=== PATIENT | male | born 1970 | race Caucasian/White ===

== ENCOUNTER 2018-11-09 06:34 | Emergency (ER) | payer SELFPAY ==
[2018-11-09] MEDS ORDERED: IBUPROFEN 400 MG TAB ONE (07:30)
--- NOTE | 2018-11-09 07:42 | EDPHYS ---
Physician Documentation [facility] Name: Trent Zee Age: 48 yrs Sex: Male : 1970 Arrival Date: 11/09/2018 Time: 06:35 Bed 8 Private MD: Ruben Mehta ED Physician Adolph Razo HPI: 11/09 06:51 This 48 yrs old Male presents to ER via Ambulatory with complaints of Fall cp Injury, Elbow Injury, Knee Injury. 06:51 Details of fall: The patient fell from an upright position, while walking, and struck a cp concrete surface. Onset: The symptoms/episode began/occurred last night. Associated injuries: The patient sustained right elbow, right knee, abrasion. Severity of symptoms: in the emergency department the symptoms pain, decreased ROM of right elbow. Historical: - Allergies: 06:46 Sulfa (Sulfonamide Antibiotics); aa1 - Home Meds: 06:46 glipizide 10 mg Oral tab 1 tab 2 times per day [Active]; lovastatin 40 mg Oral tab 1 aa1 tab once daily [Active]; metformin 1,000 mg Oral tab 1 tab 2 times per day [Active]; - PMHx: 06:46 Diabetes - NIDDM; High Cholesterol; aa1 - PSHx: 06:46 CATARACTS; Pilonidal Cyst Removal; Hernia repair; aa1 - Immunization history:: Flu vaccine is not up to date. - Social history:: Smoking status: Patient/guardian denies using tobacco. - Ebola Screening: : No symptoms or risks identified at this time. ROS: 06:55 Constitutional: Negative for body aches, chills, fever, poor PO intake. cp 06:55 Eyes: Negative for injury, pain, redness, and discharge. cp 06:55 Neck: Negative for pain with movement, pain at rest, stiffness. 06:55 Cardiovascular: Negative for chest pain, edema, palpitations. 06:55 Respiratory: Negative for cough, shortness of breath, wheezing. 06:55 Abdomen/GI: Negative for abdominal pain, nausea, vomiting, and diarrhea. 06:55 MS/extremity: Positive for decreased range of motion, pain, swelling, tenderness, of the right elbow. 06:55 Skin: Positive for abrasion(s), of the right knee. 06:55 Neuro: Negative for headache, weakness. 06:55 All other systems are negative. Exam: 07:00 Constitutional: The patient appears in no acute distress, alert, awake, non-toxic, well cp developed, well nourished, uncomfortable. 07:00 Head/Face: Normocephalic, atraumatic. cp 07:00 Eyes: Periorbital structures: appear normal, Conjunctiva: normal, Lids and lashes: cp appear normal, bilaterally. 07:00 ENT: External ear(s): are unremarkable, Nose: is normal, Mouth: is normal, Posterior pharynx: Airway: no evidence of obstruction, patent. 07:00 Neck: C-spine: vertebral tenderness, is not appreciated, crepitus, is not appreciated, ROM/movement: is normal, is supple, without pain, no range of motions limitations. 07:00 Chest/axilla: Inspection: normal. 07:00 Cardiovascular: Rate: normal, Pulses: Pulses are 2+ in right radial artery and left radial artery. 07:00 Respiratory: the patient does not display signs of respiratory distress, Respirations: normal, no use of accessory muscles, no retractions, no splinting, no tachypnea. 07:00 Abdomen/GI: Exam negative for discomfort, distension, guarding, Inspection: abdomen appears normal. 07:00 Back: pain, is absent, ROM is normal. 07:00 Musculoskeletal/extremity: Extremities: grossly normal except: noted in the right elbow: decreased ROM, pain, swelling, tenderness, noted in the right knee: no evidence of decreased ROM, swelling, tenderness. 07:00 Neuro: Orientation: to person, place \T\ time. Mentation: is normal. cp Vital Signs: 06:46 BP 133 / 80; Pulse 83; Resp 18; Temp 97.6; Pulse Ox 98% on R/A; Weight 117.93 kg; aa1 Height 6 ft. 2 in. (187.96 cm); Pain 4/10; 08:10 BP 134 / 81; Pulse 76; Resp 18; Pulse Ox 99% ; sv 06:46 Body Mass Index 33.38 (117.93 kg, 187.96 cm) aa1 Procedures: 08:05 Splinting: Splint applied to right elbow using Orthoglass splint, sling, applied by cp myself. Examined by me, post splint application: neurovascular intact, Patient tolerated well. MDM: 06:38 Patient medically screened. cp 07:40 Data reviewed: vital signs, nurses notes, radiologic studies, plain films, and as a cp result, I will discharge patient. 07:40 Differential diagnosis: contusion, fracture, multiple trauma. Test interpretation: by cp ED physician or midlevel provider: plain radiologic studies. Counseling: I had a detailed discussion with the patient and/or guardian regarding: the historical points, exam findings, and any diagnostic results supporting the discharge/admit diagnosis, radiology results, the need for outpatient follow up, a orthopedic surgeon. Response to treatment: the patient's symptoms have markedly improved after treatment, and as a result, I will discharge patient. 11/09 06:52 Order name: XRAY Elbow RIGHT 3 view cp 11/09 07:30 Order name: Splint - Elbow - Posterior: posterior long arm; Complete Time: 08:05 cp 11/09 07:30 Order name: Sling; Complete Time: 08:05 cp Administered Medications: 07:31 Drug: Ibuprofen 800 mg Route: PO; sv 08:05 Follow up: Response: No adverse reaction sv Disposition: 13:30 Co-signature as Attending Physician, Adolph Razo MD I agree with the assessment and [facility] plan of care. Disposition: 11/09/18 07:42 Discharged to Home. Impression: Nondisplaced fracture of neck of right radius, Other slipping, tripping and stumbling and falls. - Condition is Stable. - Discharge Instructions: Elbow Fracture Treated With ORIF. - Prescriptions for Anaprox DS 550 mg Oral Tablet - take 1 tablet by ORAL route every 12 hours As needed; 20 tablet. Tylenol- Codeine #3 300-30 mg Oral Tablet - take 2 tablets by ORAL route every 6 hours As needed; 20 tablet. - Family Work Release, Medication Reconciliation Form, Thank You Letter, Antibiotic Education, Prescription Opioid Use form. - Follow up: Guilherme Tavares MD; When: 2 - 3 days; Reason: right elbow fracture. - Problem is new. - Symptoms have improved. Signatures: Dispatcher [employer] Sonali Lazo RN RN sv Kern, Alissa, RN RN aaAdolph Carmona MD MD cha Page, Corey, PA PA Corrections: (The following items were deleted from the chart) 08:11 07:42 11/09/2018 07:42 Discharged to Home. Impression: Nondisplaced fracture of neck of sv right radius; Other slipping, tripping and stumbling and falls. Condition is Stable. Forms are Medication Reconciliation Form, Thank You Letter, Antibiotic Education, Prescription Opioid Use. Follow up: Guilherme Tavares; When: 2 - 3 days; Reason: right elbow fracture. Problem is new. Symptoms have improved. cp
--- NOTE | 2018-11-09 07:42 | ER ---
Nurse's Notes [facility] Name: Trent Zee Age: 48 yrs Sex: Male : 1970 Arrival Date: 11/09/2018 Time: 06:35 Bed 8 Private MD: Ruben Mehta Diagnosis: Nondisplaced fracture of neck of right radius;Other slipping, tripping and stumbling and falls Presentation: 11/09 06:44 Presenting complaint: Patient states: he tripped walking into [facility] last night and has aa1 pain in his R knee and R elbow. CMS intact. Transition of care: patient was not received from another setting of care. Onset of symptoms was November 08, 2018 at 21:30. Risk Assessment: Do you want to hurt yourself or someone else? Patient reports no desire to harm self or others. Initial Sepsis Screen: Does the patient meet any 2 criteria? No. Patient's initial sepsis screen is negative. Does the patient have a suspected source of infection? No. Patient's initial sepsis screen is negative. Care prior to arrival: None. 06:44 Method Of Arrival: Ambulatory aa1 06:44 Acuity: SEAN 4 aa1 Triage Assessment: 06:46 General: Appears in no apparent distress. comfortable, Behavior is calm, cooperative, aa1 appropriate for age. Historical: - Allergies: 06:46 Sulfa (Sulfonamide Antibiotics); aa1 - Home Meds: 06:46 glipizide 10 mg Oral tab 1 tab 2 times per day [Active]; lovastatin 40 mg Oral tab 1 aa1 tab once daily [Active]; metformin 1,000 mg Oral tab 1 tab 2 times per day [Active]; - PMHx: 06:46 Diabetes - NIDDM; High Cholesterol; aa1 - PSHx: 06:46 CATARACTS; Pilonidal Cyst Removal; Hernia repair; aa1 - Immunization history:: Flu vaccine is not up to date. - Social history:: Smoking status: Patient/guardian denies using tobacco. - Ebola Screening: : No symptoms or risks identified at this time. Screenin:10 Abuse screen: Denies threats or abuse. Denies injuries from another. Nutritional sv screening: No deficits noted. Tuberculosis screening: No symptoms or risk factors identified. Fall Risk None identified. Assessment: 06:47 General: Appears in no apparent distress. uncomfortable, Behavior is calm, cooperative, jd3 appropriate for age. Pain: Complains of pain in right elbow Quality of pain is described as sharp. Neuro: Level of Consciousness is awake, alert, obeys commands, Oriented to person, place, time, situation. Cardiovascular: Capillary refill < 3 seconds Patient's skin is warm and dry. Respiratory: Airway is patent Respiratory effort is even, unlabored. GI: No signs and/or symptoms were reported involving the gastrointestinal system. : No signs and/or symptoms were reported regarding the genitourinary system. EENT: No signs and/or symptoms were reported regarding the EENT system. Derm: Skin is intact, Skin is dry, Skin is normal, Skin temperature is warm. Musculoskeletal: Circulation, motion, and sensation intact. Range of motion: limited in right elbow. Vital Signs: 06:46 BP 133 / 80; Pulse 83; Resp 18; Temp 97.6; Pulse Ox 98% on R/A; Weight 117.93 kg; aa1 Height 6 ft. 2 in. (187.96 cm); Pain 4/10; 08:10 BP 134 / 81; Pulse 76; Resp 18; Pulse Ox 99% ; sv 06:46 Body Mass Index 33.38 (117.93 kg, 187.96 cm) aa1 ED Course: 06:35 Patient arrived in ED. es 06:35 Ruben Mehta MD is Private Physician. es 06:38 [facility] cp 06:38 Adolph Rzao MD is Attending Physician. cp 06:45 Triage completed. aa1 06:46 Arm band placed on right wrist. aa1 07:09 X-ray completed. Portable x-ray completed in exam room. Patient tolerated procedure jb2 poorly. UNABLE TO POSITION FOR VIEWS PROPERLY DUE TO PAIN. 07:11 XRAY Elbow RIGHT 3 view In Process Unspecified. EDMS 07:20 Patient has correct armband on for positive identification. Bed in low position. Call sv light in reach. 07:40 Guilherme Tavares MD is Referral Physician. cp 08:10 No provider procedures requiring assistance completed. Patient did not have IV access sv during this emergency room visit. Administered Medications: 07:31 Drug: Ibuprofen 800 mg Route: PO; sv 08:05 Follow up: Response: No adverse reaction sv Outcome: 07:42 Discharge ordered by MD. cp 08:10 Discharged to home ambulatory, with splint and arm sling sv 08:10 Condition: stable 08:10 Discharge instructions given to patient, Instructed on discharge instructions, follow up and referral plans. no drinking with medication, no driving heavy equipment, medication usage, Demonstrated understanding of instructions, follow-up care, medications, Prescriptions given X 2. 08:11 Patient left the ED. sv Signatures: Dispatcher [employer] Sonali Lazo RN RN sv Kern, Alissa, RN RN aa1 Shannon Rangel Jesse jb2 Adolph Salgado PA PA Vj Moses RN RN jd3 Corrections: (The following items were deleted from the chart) 06:44 06:43 Vj Sorto RN is Primary Nurse. jd3 jd3
--- NOTE | 2018-11-09 09:16 | RAD REPORT ---
EXAM DESCRIPTION: RAD - Elbow Right 3 View - 11/09/2018 7:12 am CLINICAL HISTORY: Right elbow pain status post fall FINDINGS: Minimally displaced radial neck fracture No dislocation
== END 2018-11-09 08:11 | disposition home or self-care (01) ==
LOC: ER 06:34
PROC: 2W38X1Z Immobilization of Right Upper Extremity using Splint (ICD-10-PCS; principal; 2018-11-09)
DX: S52.134A Nondisplaced fracture of neck of right radius, initial encounter for closed fracture (principal); S80.211A Abrasion, right knee, initial encounter; W01.198A Fall on same level from slipping, tripping and stumbling with subsequent striking against other object, initial encounter; E11.9 Type 2 diabetes mellitus without complications; E78.00 Pure hypercholesterolemia, unspecified; Z79.84 Long term (current) use of oral hypoglycemic drugs; Z79.899 Other long term (current) drug therapy
CPT/HCPCS: 99283